=== PATIENT | male | born 1990 | race Caucasian/White ===

== ENCOUNTER 2017-04-21 13:00 | Emergency (ER) | payer OTHER ==
[2017-04-21 13:09] VITALS: BP 109/96
--- NOTE | 2017-04-21 13:18 | UC ---
Laceration HPI - HPI Summary HPI Summary: 27 year old male with laceration to the head. He fell backwards on snow/ice. Denies LOC. No MANE. No Seizure. No confusion. Of note he adamantly declined imaging here d/t insurance reasons. He fell about 11 hours ago at home when he was sleep walking. no sleep meds. he has had sleep walking issues in the past. he stopped the bleeding then went to bed. no neuro deficits per patient - History Of Current Complaint Chief Complaint: UCHeadInjury Stated Complaint: LAC ON HEAD Time Seen by Provider: 04/21/17 13:12 Hx Obtained From: Patient Mechanism Of Injury: Blunt Trauma Onset/Duration: Sudden Onset - Allergies/Home Medications Allergies/Adverse Reactions: Allergies Allergy/AdvReac Type Severity Reaction Status Date / Time No Known Allergies Allergy Verified 04/21/17 13:06 PMH/Surg Hx/FS Hx/Imm Hx Previously Healthy: Yes - Surgical History Surgical History: Yes Surgery Procedure, Year, and Place: left arm orif - Family History Known Family History: Positive: None - Social History Occupation: Employed Full-time Alcohol Use: Rare Substance Use Type: None Smoking Status (MU): Never Smoked Tobacco - Immunization History Most Recent Tetanus Shot: unknown Review of Systems Skin: Other - laceration to the head All Other Systems Reviewed And Are Negative: Yes Physical Exam Triage Information Reviewed: Yes Appearance: Well-Appearing, No Pain Distress, Well-Nourished Vital Signs: Initial Vital Signs Temp 98.0 F 04/21/17 13:07 Pulse 72 04/21/17 13:07 Resp 14 04/21/17 13:07 BP 109/96 04/21/17 13:07 Pulse Ox 98 04/21/17 13:07 Vital Signs Reviewed: Yes Eye Exam: Normal ENT Exam: Normal Respiratory Exam: Normal Cardiovascular Exam: Normal Neurological Exam: Normal Psychological Exam: Normal Skin: Positive: Other - horizontal linear laceration occipital 2cm with mild oozing Laceration Repair - Laceration Repair 1 Description: Linear Laceration Size After Repair: Length (cm) - 2 Modified For Repair: No Cleansing Completed Via Routine Prep: Yes Irrigation With Pressure Irrigation Device: Yes Closure Material: Sutures Closure Method: Single Layer Laceration Course/Dx - Course/Dx Course Of Treatment: 6 akua. tolerated well. minimal / no bleeding - Differential Dx - Laceration/Wound Differental Diagnoses: Laceration Provider Diagnoses: Scalp laceration Discharge - Discharge Plan Condition: Good Disposition: HOME Patient Education Materials: Laceration (ED) Referrals: Cornelio Garcia MD [Primary Care Provider] - 7 Days (For staple removal )
[2017-04-21] MEDS ORDERED: Acetaminophen TAB* 325 MG PO ONE (13:27)
== END 2017-04-21 13:40 | disposition home or self-care (01) ==
LOC: UCEAST 13:00
DX: S01.01XA Laceration without foreign body of scalp, initial encounter (principal); W00.0XXA Fall on same level due to ice and snow, initial encounter; Y93.9 Activity, unspecified; Y92.9 Unspecified place or not applicable
CPT/HCPCS: 12001; 12031; 99212; A9270-GY; G0463

== ENCOUNTER 2017-04-28 15:53 | Emergency (ER) | payer OTHER ==
[2017-04-28 16:03] VITALS: BP 126/66
--- NOTE | 2017-04-28 16:14 | UC ---
HPI Wound/Suture Re-check - HPI Summary HPI Summary: comes to have akua removed from head, no other complaints. - History Of Current Complaint Chief Complaint: BERNARDOkin Stated Complaint: STAPLE REMOVAL Time Seen by Provider: 04/28/17 16:06 Hx Obtained From: Patient Onset/Duration: Sudden Onset Severity: Mild Pain Scale Used: 0-10 Numeric - 0 - Allergies/Home Medications Allergies/Adverse Reactions: Allergies Allergy/AdvReac Type Severity Reaction Status Date / Time No Known Allergies Allergy Verified 04/28/17 16:04 PMH/Surg Hx/FS Hx/Imm Hx Previously Healthy: Yes - Surgical History Surgical History: Yes Surgery Procedure, Year, and Place: left arm orif - Family History Known Family History: Positive: None - Social History Alcohol Use: Rare Substance Use Type: None Smoking Status (MU): Never Smoked Tobacco - Immunization History Most Recent Tetanus Shot: unknown Review of Systems Constitutional: Negative All Other Systems Reviewed And Are Negative: Yes Physical Exam Triage Information Reviewed: Yes Completion Of Physical Exam Limited Due To: Patient age Appearance: Well-Appearing, Obese Vital Signs: Initial Vital Signs Temp 98.0 F 04/28/17 16:01 Pulse 73 04/28/17 16:01 Resp 12 04/28/17 16:01 BP 126/66 04/28/17 16:01 Pulse Ox 100 04/28/17 16:01 Vital Signs Reviewed: Yes Eye Exam: Normal Skin Exam: Other - linear scar on occipital area with 6 akua Course/Dx - Course Course Of Treatment: akua removed without complications. Keep scalp clean - Differential Dx - Laceration/Wound Provider Diagnoses: staple removal from scalp Discharge - Discharge Plan Condition: Stable Disposition: HOME Patient Education Materials: Staple Care (ED) Referrals: Cornelio Garcia MD [Primary Care Provider] -
== END 2017-04-28 16:21 | disposition home or self-care (01) ==
LOC: UCEAST 15:53
DX: S01.01XD Laceration without foreign body of scalp, subsequent encounter (principal); W26.9XXD Contact with unspecified sharp object(s), subsequent encounter; E66.9 Obesity, unspecified